=== PATIENT | female | born 1940 | race Caucasian/White ===

== ENCOUNTER 2017-09-11 08:09 | Day surgery (SDC) | payer MEDICARE ==
[~2017-09-11] VITALS: Ht 144.8 cm; Wt 36.5 kg
[2017-09-11] VITALS (8 sets, daily range): BP systolic 147–184; BP diastolic 66–92; PULSE 61–76; RESP 18; TEMP 97.6–97.8; O2SAT 92–97
[2017-09-11] MEDS ORDERED: XARE15TA PO (08:27)
[2017-09-11] MEDS ORDERED: CENTCHW4 CHEW (08:27)
[2017-09-11] MEDS ORDERED: LISI-519 PO (08:27)
[2017-09-11] MEDS ORDERED: PRIL20TA2 (08:27)
[2017-09-11] MEDS ORDERED: BYST5TAB2 PO (08:27)
[2017-09-11] MEDS ORDERED: CALC1TAB34 PO (08:27)
[2017-09-11] MEDS ORDERED: LIPI80TA PO (08:27)
[2017-09-11] MEDS ORDERED: ALBUAER3 INH (08:27)
[2017-09-11] MEDS ORDERED: ADVA250A INH (08:27)
[2017-09-11] MEDS ORDERED: SPIRCAP INH (08:27)
[2017-09-11] MEDS ORDERED: SODIUM CHLOR 0.9% 1000 ML IV SCH (09:00)
[2017-09-11] MEDS ORDERED: MIDAZOLAM HCL 2 MG/2 ML VIAL ONE (09:37)
[2017-09-11] MEDS ORDERED: oxyCODONE/ACETAMINOPHEN 5 MG/325 MG TAB PO PRN (10:15)
[2017-09-11] MEDS ORDERED: LIDOCAINE HCL 1% 10 ML VIAL OTHER ONE (10:31)
--- NOTE | 2017-09-11 10:47 | RADRPT ---
EXAM DATE/TIME: 09/11/2017 10:21 [facility] COMPARISON: No previous studies available for comparison. INDICATIONS : Post lung biopsy MEDICAL HISTORY : Chronic obstructive pulmonary disease. SURGICAL HISTORY : Pacemaker. ENCOUNTER: Initial ACUITY: 1 day PAIN SCORE: 0/10 LOCATION: Right chest FINDINGS: A single frontal expiratory view of the chest was performed. The lungs are symmetrically aerated and clear. No evidence of pneumothorax. Mediastinal structures are in the midline. Median sternotomy w ires are noted. Left subclavian dual lead pacemaker has its tips in the right atrium and right ventri melida. The cardio-mediastinal contours and bronchopulmonary markings are unremarkable for an expiratory exam . Osseous structures are intact. CONCLUSION: No evidence of pneumothorax status post right lung biopsy. Yohan Reyes MD on September 11, 2017 at 10:44 Board Certified Radiologist. This report was verified electronically.
--- NOTE | 2017-09-11 11:09 | RADRPT ---
EXAM DATE/TIME: 09/11/2017 09:53 [facility] COMPARISON: No previous studies available for comparison. INDICATIONS : Right lung mass. SEDATION TIME: 30 minutes BIOPSY SITE: Right MEDICATION(S): 1.) 1 mg midazolam (Versed) IV 2.) 50 mcg fentanyl (Sublimaze) IV DEVICE(S): 1.) 20 gauge Temno core biopsy needle MEDICAL HISTORY : Chronic obstructive pulmonary disease. Hypertension. Cardiovascular disease. SURGICAL HISTORY : CABG Pacemaker. ENCOUNTER: Initial ACUITY: 1 day PAIN SCORE: 0/10 LOCATION: Right chest A total of one core specimen(s) were obtained and sent to the laboratory for pathologic evaluation. PROCEDURE: 1. CT guided lung biopsy. 2. Conscious sedation with continuous EKG and oximetry monitoring. 3. EKG and oximetry remained stable throughout the procedure. Prior to the procedure informed consent was obtained. Any appropriate prior imaging studies were rev iewed. Using automated exposure control and adjustment of the mA and/or kV according to patient size, radiation dose was kept as low as reasonably achievable to obtain optimal diagnostic quality images. DICOM format image data is available electronically for review and comparison. The site was prepped in a sterile fashion. Full sterile technique was used, including cap, mask, di rile gloves and gown and a large sterile sheet. Hand hygiene and 2% chlorhexidine and/or betadine/al cohol prep was utilized per protocol for cutaneous antisepsis. The skin and subcutaneous tissues wer e infiltrated with local anesthetic solution. With CT guidance the previously identified target was localized. Biopsy was performed using the presc ribed needle as above. Adequate hemostasis was obtained with compression at the puncture site. Follow-up CT scan reveals a tiny pneumothorax. Conscious sedation was performed with the prescribed dosages and duration as above in the presence of an independent trained radiology nurse to assist in the monitoring of the patient. EKG and oximetry remained stable throughout the procedure. The patient tolerated the procedure well and there were no complications. The patient was sent to Radiology Outpatient Unit in stable condition. CONCLUSION: Successful CT guided right lung biopsy. Yohan Reyes MD on September 11, 2017 at 11:05 Board Certified Radiologist. This report was verified electronically.
--- NOTE | 2017-09-11 12:26 | RADRPT ---
EXAM DATE/TIME: 09/11/2017 12:11 [facility] COMPARISON: CT NEEDLE BIOPSY LUNG, RIGHT, September 11, 2017, 9:53. CHEST EXPIRATION ONLY, September 11, 2017, 10:21. INDICATIONS : Post right side biopsy MEDICAL HISTORY : Chronic obstructive pulmonary disease. Hypertension SURGICAL HISTORY : Pacemaker. ENCOUNTER: Initial ACUITY: 1 day PAIN SCORE: 0/10 LOCATION: Bilateral chest FINDINGS: A single frontal expiratory view of the chest was performed. There is questionable pneumothorax later ally. No mediastinal shift. Status post CABG. Left-sided pacemaker. The cardio-mediastinal contours and bronchopulmonary markings are unremarkable for an expiratory exam . Osseous structures are intact. CONCLUSION: Questionable right-sided pneumothorax versus skinfold. Repeat examination recommended. Jose Puri MD on September 11, 2017 at 12:23 Board Certified Radiologist. This report was verified electronically.
--- NOTE | 2017-09-11 13:57 | RADRPT ---
EXAM DATE/TIME: 09/11/2017 13:23 [facility] COMPARISON: CT NEEDLE BIOPSY LUNG, RIGHT, September 11, 2017, 9:53. CHEST EXPIRATION ONLY, September 11, 2017, 12:11. INDICATIONS : Post right side lung biopsy MEDICAL HISTORY : Chronic obstructive pulmonary disease. Hypertension SURGICAL HISTORY : Pacemaker. ENCOUNTER: Initial ACUITY: 1 day PAIN SCORE: 0/10 LOCATION: Bilateral chest FINDINGS: A single frontal expiratory view of the chest was performed. Lungs are hyperinflated with a linear de nsity in the right superior perihilar distribution which may represent the recently biopsied nodule. No pneumothorax. Postsurgical changes characteristic of prior CABG clear heart size is normal. Left s ubclavian polar pacer is radiographically intact. CONCLUSION: 1. No pneumothorax post right lung biopsy. 2. Hyperinflation. Linear density in the superior right perihilar distribution may represent the rece ntly biopsied nodule. Jovanni Casas MD on September 11, 2017 at 13:43 Board Certified Radiologist. This report was verified electronically.
== END 2017-09-11 14:23 | disposition home or self-care (01) ==
LOC: HRAD 08:09 → HRIP 08:13 → HRAD 14:23
PROVIDERS: ATTEND Internal Medicine Pulmonary Disease
DX: R91.8 Other nonspecific abnormal finding of lung field (principal); J44.9 Chronic obstructive pulmonary disease, unspecified; Z95.0 Presence of cardiac pacemaker; I10 Essential (primary) hypertension; Z95.1 Presence of aortocoronary bypass graft
CPT/HCPCS: 32405; 71045; 77012; 88305; 99152; 99153; J2250; J3010; J7030